=== PATIENT | male | born 1955 | race Caucasian/White ===

== ENCOUNTER 2022-07-24 18:13 | Inpatient (IN) | payer OTHER ==
[2022-07-24 19:14] LABS: #Eosinphils 0.1 thou/uL (0.0-0.7); #Lymphocytes 0.9 thou/uL (1.20-3.40); #Monocytes 0.9 thou/uL (0.11-0.59); #Neutrophils 10.4 thou/uL (1.40-6.50); %Basophils 0.2 % (0.0-1.0); %Lymphocytes 7.3 % (21.0-51.0); %Monocytes 7.5 % (0.0-10.0); Hemoglobin 15.2 g/dL (14.0-18.0); Mean Corpuscular HGB CONC 35.1 g/dL (32.0-36.0); Mean Corpuscular Hemoglobin 33.9 pg (27.0-31.0); Mean Corpuscular Volume 96.7 fl (78.0-98.0); Mean Platelet Volume 7.1 fL (7.4-10.4); Platelet Count 224 10x3/uL (130-400); Red Blood Cell (RBC) Count 4.47 mill/uL (4.70-6.10); White Blood Cell (WBC) Count 12.4 10x3/uL (4.8-10.8)
[2022-07-24 19:36] LABS: ALT (SGPT) 16 U/L (8-55); AST (SGOT) 20 U/L (5-34); Albumin 3.9 g/dL (3.4-4.8); Alkaline Phosphatase 75 U/L (40-110); Anion Gap 12 mmol/L (10-20); BUN (Urea Nitrogen) 15 mg/dL (8.4-25.7); Bilirubin, Total 0.3 mg/dL (0.2-1.2); Calc. Creatinine Clearance 0 mL/min (70-130); Calcium 9.3 mg/dL (7.8-10.44); Carbon Dioxide 22 mmol/L (23-31); Chloride 108 mmol/L (98-107); Estimated GFR 98; Globulin 2.8 g/dL (2.4-3.5); Glucose 146 mg/dL (80-115); Lipase 33 U/L (8-78); Potassium 3.7 mmol/L (3.5-5.1); Protein, Total 6.7 g/dL (5.8-8.1); Sodium 138 mmol/L (136-145)
[2022-07-24] MEDS ORDERED: Piperacillin/Tazobactam 3.375 GM VIAL ONE (21:23)
[2022-07-24] MEDS ORDERED: HYDROmorphone 0.5 MG/0.5 ML SYRINGE ONE (21:30)
[2022-07-24] MEDS ORDERED: SUGAMMADEX SODIUM 200 MG/2 ML VIAL ONE (21:30)
[2022-07-24] MEDS ORDERED: Fentanyl 250 MCG/5 ML VIAL ONE (21:30)
[2022-07-24] MEDS ORDERED: Dexmedetomidine 200 MCG/2 ML VIAL ONE (21:42)
[2022-07-24] MEDS ORDERED: Bupivacaine HCl 0.5%/Epinephrine 1:200,000/PF 30 ml Vial ONE (21:44)
[2022-07-24] MEDS ORDERED: HumaLOG 300 UNITS/3 ML VIAL SC PRN (22:00)
[2022-07-24] MEDS ORDERED: TETANUS, DIPHTHERIA TOX,ADULT (TDVAX) 0.5 ML VIAL IM ONE (22:00)
[2022-07-24] MEDS ORDERED: Ipratropium/Albuterol 3 ML NEB NEB PRN (22:00)
[2022-07-24] MEDS ORDERED: Ondansetron ODT 4 MG TAB PO PRN (22:00)
[2022-07-24] MEDS ORDERED: Ondansetron PF 4 MG/2 ML Vial IVP PRN (22:00)
[2022-07-24] MEDS ORDERED: Dextrose 50% Abboject 50 ML SYRINGE SLOW IVP PRN (22:00)
[2022-07-24] MEDS ORDERED: hydrALAZINE 20 MG/ML VIAL SLOW IVP PRN (22:00)
[2022-07-24] MEDS ORDERED: Dextrose 5% in Water 1,000 ML IV PRN (22:00)
[2022-07-24 22:35] LABS: Hemoglobin A1c 5.3 % (4.0-6.0)
[2022-07-25 00:27] VITALS: BMI 20.4
[2022-07-25] MEDS: Ketorolac Tromethamine 30 MG/ML VIAL IVP PRN ×4 (01:30→23:35)
[2022-07-25] MEDS: Acetaminophen 500 MG TAB PO PRN (01:31)
[2022-07-25] MEDS: Polyethylene Glycol 3350 17 GM Packet PO SCH (09:07)
[2022-07-25] MEDS: Famotidine 20 MG TAB PO SCH ×2 (09:07→21:11)
[2022-07-26] MEDS: Famotidine 20 MG TAB PO SCH ×2 (10:02→22:18)
[2022-07-26] MEDS: Polyethylene Glycol 3350 17 GM Packet PO SCH (10:05)
[2022-07-26] MEDS: Ketorolac Tromethamine 30 MG/ML VIAL IVP PRN (17:39)
[2022-07-27] MEDS: Ketorolac Tromethamine 30 MG/ML VIAL IVP PRN (02:39)
[2022-07-27] MEDS: Acetaminophen 500 MG TAB PO PRN ×2 (07:21→21:00)
[2022-07-27] MEDS: Famotidine 20 MG TAB PO SCH ×2 (07:22→21:00)
[2022-07-27] MEDS ORDERED: Lactated Ringer's 1,000 ML IV SCH (08:00)
[2022-07-27] MEDS: Polyethylene Glycol 3350 17 GM Packet PO SCH (08:20)
[2022-07-27] MEDS ORDERED: Bupivacaine/Epinephrine 0.25% 30 ML VIAL ONE (08:59)
[2022-07-27] MEDS ORDERED: CEFAZOLIN 2 GM VIAL ONE (09:43)
[2022-07-27] MEDS ORDERED: Sodium Chloride 0.9% 100 ML ONE (09:43)
[2022-07-27] MEDS ORDERED: Rocuronium Bromide 10 MG/ML (10ML VIAL) ONE (10:05)
[2022-07-27] MEDS ORDERED: Ondansetron PF 4 MG/2 ML Vial ONE (10:05)
[2022-07-27] MEDS ORDERED: Dexamethasone 20 MG/5 ML VIAL ONE (10:05)
[2022-07-27] MEDS ORDERED: Phenylephrine 10 MG/ML VIAL ONE (10:05)
[2022-07-27] MEDS ORDERED: Lidocaine 1% PF 5 ML VIAL ONE (10:05)
[2022-07-27] MEDS ORDERED: PROPOFOL 200 MG/20 ML VIAL ONE (10:05)
[2022-07-27] MEDS ORDERED: ePHEDrine 50 MG/ML VIAL ONE (10:05)
[2022-07-27] MEDS ORDERED: HYDROmorphone 0.5 MG/0.5 ML SYRINGE ONE (10:43)
[2022-07-27] MEDS ORDERED: FENTANYL 50 MCG/ML 1 ML VIAL ONE ×5 (10:45→13:03)
[2022-07-27] MEDS ORDERED: Ibuprofen 600 MG TAB PO PRN (12:02)
[2022-07-27] MEDS ORDERED: Promethazine HCl 25 MG/ML VIAL IM/IV PRN (13:30)
[2022-07-27] MEDS ORDERED: HYDROmorphone 2 MG/ML VIAL SLOW IVP PRN (13:30)
[2022-07-27] MEDS ORDERED: Ondansetron HCl/PF 4 MG/2 ML Vial IVP PRN (13:30)
[2022-07-27] MEDS: traMADol HCl 50 MG TAB PO PRN (17:45)
[2022-07-27] MEDS ORDERED: CEFAZOLIN 2 GM in Sodium Chloride 0.9% 100 ML IVPB SCH (22:15)
[2022-07-28] MEDS: traMADol HCl 50 MG TAB PO PRN (01:23)
[2022-07-28] MEDS: Polyethylene Glycol 3350 17 GM Packet PO SCH (08:11)
[2022-07-28] MEDS: Famotidine 20 MG TAB PO SCH (08:11)
[2022-07-28 08:48] VITALS: BP 99/68; TEMP 98.9
== END 2022-07-28 10:18 | disposition home or self-care (01) | DRG 352 ==
LOC: ERS 18:13 → SURG A 22:10
PROVIDERS: ADMIT Specialist; ATTEND Specialist
PROC: 0YUA4JZ Supplement Bilateral Inguinal Region with Synthetic Substitute, Percutaneous Endoscopic Approach (ICD-10-PCS; principal; 2022-07-27)
PROC: 8E0W4CZ Robotic Assisted Procedure of Trunk Region, Percutaneous Endoscopic Approach (ICD-10-PCS; 2022-07-27)
DX: K40.00 Bilateral inguinal hernia, with obstruction, without gangrene, not specified as recurrent (principal); E11.9 Type 2 diabetes mellitus without complications; E78.5 Hyperlipidemia, unspecified; E78.00 Pure hypercholesterolemia, unspecified; F17.210 Nicotine dependence, cigarettes, uncomplicated; F10.90 Alcohol use, unspecified, uncomplicated; Z90.49 Acquired absence of other specified parts of digestive tract; Z89.612 Acquired absence of left leg above knee
CPT/HCPCS: 36415; 36416; 71045; 74177; 80053; 83036; 83690; 85025; 86140; 93880; C1781; J1100; J1170; J1650; J1815; J1885; J2370; J2405; J2543; J2704; J3010; J3490; J7120